=== PATIENT | female | born 1975 | race Caucasian/White ===

== ENCOUNTER → 2016-06-14 | Outpatient (CLI) | payer OTHER ==
[~2016-06-14] MED LIST: HYDRALAZINE HCL50 MG PO; HYDROCHLOROTHIA50 MG PO; IBUPROFEN600 MG PO; METFORMIN HCL1000 MG PO; NORCO 10-325 T1 EACH PO; POTASSIUM CHLO20 ME1 PO; PRILOSEC OTC20 MG PO
== END ==
LOC: CT 08:24
DX: R10.11 Right upper quadrant pain (principal); K76.0 Fatty (change of) liver, not elsewhere classified; N85.2 Hypertrophy of uterus
CPT/HCPCS: J7050; Q9962

== ENCOUNTER → 2016-08-09 | Outpatient (CLI) | payer OTHER ==
[2016-08-09 10:55] LABS: HEMOGLOBIN 15.6 gm/dl (12.3-15.3); RED BLOOD COUNT 5.18 M/UL (4.00-5.10); WHITE BLOOD COUNT 12.2 K/UL (4.5-11.0)
[2016-08-09 11:12] LABS: BUN/CREATININE RATIO 16 (0-10)
== END ==
LOC: OPSV2 10:00
PROVIDERS: Anesthesiology; Obstetrics & Gynecology
DX: Z01.812 Encounter for preprocedural laboratory examination (principal); N94.6 Dysmenorrhea, unspecified
CPT/HCPCS: 36415; 80048; 81001; 85025

== ENCOUNTER → 2016-08-20 | Outpatient (CLI) | payer OTHER | LOC: KOH-I 16:49 | DX: R05 Cough (principal) | CPT/HCPCS: 71020 ==

== ENCOUNTER 2016-08-22 08:50 | Day surgery (SDC) | payer OTHER ==
[~2016-08-22] VITALS: Ht 160 cm; Wt 87.5 kg
[2016-08-22] MEDS ORDERED: HYDRALAZINE HCL50 MG PO (09:19)
[2016-08-22] MEDS ORDERED: HYDROCHLOROTHIA50 MG PO (09:20)
[2016-08-22] MEDS ORDERED: METFORMIN HCL1000 MG PO (09:20)
[2016-08-22] MEDS ORDERED: POTASSIUM CHLO20 ME1 PO (09:21)
[2016-08-22] MEDS ORDERED: PRILOSEC OTC20 MG PO (09:22)
[2016-08-23] MEDS ORDERED: IBUPROFEN600 MG PO (10:29)
[2016-08-23] MEDS ORDERED: NORCO 10-325 T1 EACH PO (10:32)
== END 2016-08-23 06:00 | disposition home or self-care (01) ==
LOC: OR 08:50 → M/S 16:04 → OR 08-23 06:00
PROVIDERS: Obstetrics & Gynecology
PROC: 0UTC4ZZ Resection of Cervix, Percutaneous Endoscopic Approach (ICD-10-PCS; 2016-08-22)
PROC: 0UT04ZZ Resection of Right Ovary, Percutaneous Endoscopic Approach (ICD-10-PCS; 2016-08-22)
PROC: 0UT54ZZ Resection of Right Fallopian Tube, Percutaneous Endoscopic Approach (ICD-10-PCS; 2016-08-22)
PROC: 0UT94ZZ Resection of Uterus, Percutaneous Endoscopic Approach (ICD-10-PCS; principal; 2016-08-22 11:45)
DX: D25.9 Leiomyoma of uterus, unspecified (principal); N94.6 Dysmenorrhea, unspecified; N73.6 Female pelvic peritoneal adhesions (postinfective); I10 Essential (primary) hypertension; E11.9 Type 2 diabetes mellitus without complications; K21.9 Gastro-esophageal reflux disease without esophagitis; Z87.01 Personal history of pneumonia (recurrent); Z87.891 Personal history of nicotine dependence; Z88.2 Allergy status to sulfonamides; Z88.8 Allergy status to other drugs, medicaments and biological substances; Z79.84 Long term (current) use of oral hypoglycemic drugs; Z79.899 Other long term (current) drug therapy
CPT/HCPCS: 82962; 84703; J0690; J1200; J1885; J2250; J2270; J2405; J2710; J2765; J2795; J3010; J7120

== ENCOUNTER → 2020-03-08 | Outpatient (CLI) | payer OTHER ==
[~2020-03-08] MED LIST changes: +ACIDOPHILUS1 EAC2 PO; +ALDACTONE25 MG PO; +ALPRAZOLAM0.5 MG PO; +ATIVAN0.5 MG PO; +ATIVAN1 MG PO; +AUGMENTIN 875-1 EACH PO; +BENTYL 20MG TAB20 MG PO; +CARDIZEM CD300 MG PO; +CATAPRES 0.1MG0.1 MG PO; +CIPRO500 MG PO; +COREG 12.5MG12.5 MG PO; +FLAGYL500 MG PO; +FLORASTOR250 MG PO; +GLUCOPHAGE1000 MG PO; +GLUCOTROL 10 MG10 MG PO; +K-DUR TAB 10 M10 MEQ PO; +K-DUR TAB 20 M20 MEQ PO; +LAMICTAL25 MG PO; +LOPRESSOR50 MG PO; +NEURONTIN300 MG PO; +OMEPRAZOLE20 M2 PO; +OMNICEF 300 MG300 MG PO; +PAROXETINE HCL40 MG PO; +PEPCID20 MG PO; +PERCOCET 5-3251 EACH PO; +PHENERGAN 25 MG25 M1 PO; +PRAVASTATIN SOD40 MG PO; +PROZAC20 MG PO; +QUESTRAN LIGHT 44 GM PO; +REMERON15 MG PO; +TRANDATE 100 M100 MG PO; +VANCOCIN HCL125 MG PO; +VANCOMYCIN HCL125 MG PO; +VERAPAMIL ER240 MG PO; +VISTARIL25 MG PO; +ZOFRAN ODT 4 MG4 MG PO; +ZOFRAN ODT 4 MG4 MG SL; +ZYPREXA10 MG PO
== END ==
LOC: KOH-I 10:00
DX: N20.0 Calculus of kidney (principal); K63.89 Other specified diseases of intestine
CPT/HCPCS: 74176

== ENCOUNTER 2020-07-10 19:26 | Inpatient (IN) | payer OTHER ==
[~2020-07-10] VITALS: Ht 157.5 cm; Wt 74.8 kg
[~2020-07-10 19:26] MED LIST changes: -ATIVAN0.5 MG PO; -FLORASTOR250 MG PO; -GLUCOPHAGE1000 MG PO; -NEURONTIN300 MG PO; -OMEPRAZOLE20 M2 PO; -PRAVASTATIN SOD40 MG PO; -TRANDATE 100 M100 MG PO; -VANCOMYCIN HCL125 MG PO; -VERAPAMIL ER240 MG PO
[2020-07-10 21:21] LABS: HEMOGLOBIN 16.5 gm/dl (12.3-15.3); RED BLOOD COUNT 5.3 M/UL (4.00-5.10); WHITE BLOOD COUNT 13.2 K/UL (4.5-11.0)
[2020-07-10 21:36] LABS: BUN/CREATININE RATIO 13 (0-10)
[2020-07-10 22:37] LABS: ADENOVIRUS F 40/41 Not Detected (Negative); ASTROVIRUS Not Detected (Negative); CAMPYLOBACTER Not Detected (Negative); CRYPTOSPORIDIUM Not Detected (Negative); E.COLI 0157 Not Detected (Negative); ENTAMOEBA HISTOLYTICA Not Detected (Negative); ENTEROAGGREGATIVE E.COLI (EAEC Not Detected (Negative); ENTEROPATHOGENIC E.COLI (EPEC) Not Detected (Negative); ENTEROTOXIGENIC E.COLI (ETEC) Not Detected (Negative); GIARDIA LAMBLIA Not Detected (Negative); NOROVIRUS GI/GII Not Detected (Negative); PLESIOMONAS SHIGELLOIDES Not Detected (Negative); ROTOVIRUS A Not Detected (Negative); SALMONELLA Not Detected (Negative); SAPOVIRUS Not Detected (Negative); SHIG/ENTEROINVAS.ECOLI (EIEC) Not Detected (Negative); SHIGA-LIK TOX.PRO.E.COLI (STEC Not Detected (Negative); VIBRIO Not Detected (Negative); VIBRIO CHOLERAE Not Detected (Negative); YERSINIA ENTEROCOLITICA Not Detected (Negative)
[2020-07-11 03:39] LABS: HEMOGLOBIN 13.1 gm/dl (12.3-15.3); RED BLOOD COUNT 4.39 M/UL (4.00-5.10); WHITE BLOOD COUNT 11.3 K/UL (4.5-11.0)
[2020-07-11 04:00] LABS: BUN/CREATININE RATIO 9 (0-10)
[2020-07-11 08:35] LABS: CLOSTRIDIUM DIFFICILE TOX A/B DETECTED (Negative)
[2020-07-11] MEDS ORDERED: GLUCOPHAGE1000 MG PO (09:26)
[2020-07-11] MEDS ORDERED: GLUCOTROL 10 MG10 MG PO (09:28)
[2020-07-11] MEDS ORDERED: TRANDATE 100 M100 MG PO (09:28)
[2020-07-11] MEDS ORDERED: VERAPAMIL ER240 MG PO (09:29)
[2020-07-11] MEDS ORDERED: NEURONTIN300 MG PO (09:30)
[2020-07-11] MEDS ORDERED: ATIVAN0.5 MG PO (09:30)
[2020-07-11] MEDS ORDERED: PRAVASTATIN SOD40 MG PO (09:31)
[2020-07-11] MEDS ORDERED: OMEPRAZOLE20 M2 PO (09:31)
[2020-07-11 13:19] LABS: BUN/CREATININE RATIO 9 (0-10)
--- NOTE | 2020-07-11 13:26 | NUR ---
LAB CALLED WITH A CRITICAL POTASSIUM VALUE OF 2.8. PROVIDER WAS CALLED AND ORDERED 40MEQ PO NOW AND 3 10MEQ IV BAGS TO FOLLOW. WILL CONTINUE TO MONITOR.
[2020-07-11] MEDS ORDERED: HYDROCHLOROTHIA50 MG PO (13:59)
[2020-07-12 04:20] LABS: HEMOGLOBIN 12.8 gm/dl (12.3-15.3); RED BLOOD COUNT 4.18 M/UL (4.00-5.10)
[2020-07-12 04:24] LABS: WHITE BLOOD COUNT 7.6 K/UL (4.5-11.0)
[2020-07-12 04:57] LABS: BUN/CREATININE RATIO 8 (0-10)
[2020-07-13 06:28] LABS: HEMOGLOBIN 12.7 gm/dl (12.3-15.3); RED BLOOD COUNT 4.2 M/UL (4.00-5.10); WHITE BLOOD COUNT 7.4 K/UL (4.5-11.0)
[2020-07-13 06:57] LABS: BUN/CREATININE RATIO 13 (0-10)
[2020-07-14] MEDS ORDERED: VANCOMYCIN HCL125 MG PO (10:58)
== END 2020-07-14 12:01 | disposition home or self-care (01) | DRG 373 ==
LOC: ER1 19:26 → CDU 21:30 → M/S 21:30 → CDU 21:30 → M/S 07-11 07:22
PROVIDERS: Family Medicine; Internal Medicine; ADMIT Internal Medicine
DX: A04.72 Enterocolitis due to Clostridium difficile, not specified as recurrent (principal); E87.6 Hypokalemia; F41.1 Generalized anxiety disorder; E11.9 Type 2 diabetes mellitus without complications; I10 Essential (primary) hypertension; Z20.822 Contact with and (suspected) exposure to COVID-19; Z90.710 Acquired absence of both cervix and uterus; Z90.49 Acquired absence of other specified parts of digestive tract; Z87.891 Personal history of nicotine dependence; Z88.6 Allergy status to analgesic agent; Z88.2 Allergy status to sulfonamides; Z88.8 Allergy status to other drugs, medicaments and biological substances; Z79.4 Long term (current) use of insulin
CPT/HCPCS: 36415; 80048; 80053; 81001; 82962; 83690; 83735; 84703; 85025; 87324; 87449; 87507; 93005; 96374; 99285; G0378; J0696; J2550; J3480; Q9967; U0002

== ENCOUNTER → 2020-08-05 | Outpatient (CLI) | payer OTHER ==
[~2020-08-05] MED LIST changes: +ATIVAN0.5 MG PO; +FLORASTOR250 MG PO; +GLUCOPHAGE1000 MG PO; +NEURONTIN300 MG PO; +OMEPRAZOLE20 M2 PO; +PRAVASTATIN SOD40 MG PO; +TRANDATE 100 M100 MG PO; +VANCOMYCIN HCL125 MG PO; +VERAPAMIL ER240 MG PO
[2020-08-05 11:13] LABS: HEMOGLOBIN 16.2 gm/dl (12.3-15.3); RED BLOOD COUNT 5.2 M/UL (4.00-5.10); WHITE BLOOD COUNT 11.1 K/UL (4.5-11.0)
[2020-08-05 11:39] LABS: BUN/CREATININE RATIO 15 (0-10)
== END ==
LOC: LAB 10:57
PROVIDERS: Family Medicine
DX: R19.7 Diarrhea, unspecified (principal)
CPT/HCPCS: 36415; 80053; 85025; 87045; 87046; 87449

== ENCOUNTER → 2020-08-09 | Outpatient (CLI) | payer OTHER ==
[2020-08-09 11:07] LABS: BUN/CREATININE RATIO 12 (0-10)
== END ==
LOC: LAB 09:15
PROVIDERS: Family Medicine
DX: E87.6 Hypokalemia (principal)
CPT/HCPCS: 36415; 80048

== ENCOUNTER 2020-08-10 14:41 | Observation (INO) | payer OTHER ==
[~2020-08-10] VITALS: Ht 157.5 cm; Wt 74.8 kg
[~2020-08-10 14:41] MED LIST changes: -FLORASTOR250 MG PO
[2020-08-10 16:19] LABS: RED BLOOD COUNT 5.18 M/UL (4.00-5.10); WHITE BLOOD COUNT 14.6 K/UL (4.5-11.0)
[2020-08-10 16:47] LABS: BUN/CREATININE RATIO 15 (0-10)
[2020-08-11 03:33] LABS: RED BLOOD COUNT 4.23 M/UL (4.00-5.10)
[2020-08-11 04:21] LABS: BUN/CREATININE RATIO 10 (0-10)
[2020-08-11 09:31] LABS: ADENOVIRUS F 40/41 Not Detected (Negative); ASTROVIRUS Not Detected (Negative); CAMPYLOBACTER Not Detected (Negative); CLOSTRIDIUM DIFFICILE TOX A/B Not Detected (Negative); CRYPTOSPORIDIUM Not Detected (Negative); E.COLI 0157 Not Detected (Negative); ENTAMOEBA HISTOLYTICA Not Detected (Negative); ENTEROAGGREGATIVE E.COLI (EAEC Not Detected (Negative); ENTEROPATHOGENIC E.COLI (EPEC) Not Detected (Negative); ENTEROTOXIGENIC E.COLI (ETEC) Not Detected (Negative); GIARDIA LAMBLIA Not Detected (Negative); NOROVIRUS GI/GII Not Detected (Negative); PLESIOMONAS SHIGELLOIDES Not Detected (Negative); ROTOVIRUS A Not Detected (Negative); SALMONELLA Not Detected (Negative); SAPOVIRUS Not Detected (Negative); SHIG/ENTEROINVAS.ECOLI (EIEC) Not Detected (Negative); SHIGA-LIK TOX.PRO.E.COLI (STEC Not Detected (Negative); VIBRIO Not Detected (Negative); VIBRIO CHOLERAE Not Detected (Negative); YERSINIA ENTEROCOLITICA Not Detected (Negative)
--- NOTE | 2020-08-11 12:16 | NUR ---
MD AWARE OF 2 SECOND PAUSE WITH TELEMETRY, INSTRUCTED TO MONITOR FOR NOW.
[2020-08-12 05:59] LABS: HEMOGLOBIN 12.7 gm/dl (12.3-15.3); RED BLOOD COUNT 4.15 M/UL (4.00-5.10)
[2020-08-12 06:00] LABS: WHITE BLOOD COUNT 6.7 K/UL (4.5-11.0)
[2020-08-12 06:33] LABS: BUN/CREATININE RATIO 7 (0-10)
[2020-08-12] MEDS ORDERED: FLORASTOR250 MG PO (12:02)
[2020-08-12] MEDS ORDERED: K-DUR TAB 20 M20 MEQ PO (12:06)
--- NOTE | 2020-08-12 12:15 | NUR ---
DR. DAMON AWARE OF CARDIAC PAUSE AND BRADYCARDIA. NEW ORDERS NOTED.
[2020-08-12] MEDS ORDERED: TRANDATE 100 M100 MG PO (12:45)
== END 2020-08-12 13:28 | disposition home or self-care (01) ==
LOC: ER1 14:41 → M/S 20:33 → CDU 20:33 → M/S 20:33
PROVIDERS: Internal Medicine; Physician Assistant; ADMIT Internal Medicine
DX: R19.7 Diarrhea, unspecified (principal); E87.6 Hypokalemia; R00.1 Bradycardia, unspecified; D72.829 Elevated white blood cell count, unspecified; I10 Essential (primary) hypertension; E11.9 Type 2 diabetes mellitus without complications; Z20.822 Contact with and (suspected) exposure to COVID-19; Z88.2 Allergy status to sulfonamides; Z88.8 Allergy status to other drugs, medicaments and biological substances; Z87.891 Personal history of nicotine dependence; Z79.2 Long term (current) use of antibiotics; Z79.899 Other long term (current) drug therapy
CPT/HCPCS: 36415; 80048; 80053; 81001; 82962; 83605; 83690; 83735; 84132; 85025; 87507; 93005; 96374; 96375; 99285; G0378; J1650; J2270; J2405; J3480; Q9967; U0002

== ENCOUNTER → 2020-11-16 | Outpatient (CLI) | payer OTHER ==
[~2020-11-16] MED LIST changes: +FLORASTOR250 MG PO
== END ==
LOC: KOH-I 12:42
DX: M51.16 Intervertebral disc disorders with radiculopathy, lumbar region (principal); M48.061 Spinal stenosis, lumbar region without neurogenic claudication
CPT/HCPCS: 72148

== ENCOUNTER → 2020-11-29 | Outpatient (CLI) | payer OTHER | LOC: LAB 12:00 | DX: E04.2 Nontoxic multinodular goiter (principal) | CPT/HCPCS: 36415; 84443 ==

== ENCOUNTER → 2021-03-29 | Outpatient (CLI) | payer OTHER ==
[~2021-03-29] MED LIST changes: +DOCUSATE SODIU100 MG PO; +FLAGYL 250 MG250 MG PO; +HYDROCODON-ACE1 EAC4 PO; +IBUPROFEN800 MG PO; +KLONOPIN0.5 MG PO; +PREMARIN VAG CR30 GM EXT; +PYRIDIUM200 MG PO; +VISTARIL50 MG PO
== END ==
LOC: LAB 10:00
DX: E89.0 Postprocedural hypothyroidism (principal)
CPT/HCPCS: 36415; 84443

== ENCOUNTER → 2021-09-06 | Outpatient (CLI) | payer OTHER | LOC: HEART 5 09:23 | DX: R07.9 Chest pain, unspecified (principal); R06.02 Shortness of breath; R00.0 Tachycardia, unspecified ==

== ENCOUNTER 2021-11-04 17:03 | Emergency (ER) | payer OTHER ==
[2021-11-04 17:30] LABS: HEMOGLOBIN 15.7 gm/dl (12.3-15.3); RED BLOOD COUNT 5.14 M/UL (4.00-5.10); WHITE BLOOD COUNT 11.4 K/UL (4.5-11.0)
[2021-11-04 18:00] LABS: BUN/CREATININE RATIO 15 (0-10)
[2021-11-05] MEDS ORDERED: K-TAB ER10 MEQ PO (00:53)
== END 2021-11-05 01:02 | disposition home or self-care (01) ==
LOC: ER1 17:03
PROVIDERS: Physician Assistant
DX: F41.1 Generalized anxiety disorder (principal); E11.65 Type 2 diabetes mellitus with hyperglycemia; E11.40 Type 2 diabetes mellitus with diabetic neuropathy, unspecified; I11.9 Hypertensive heart disease without heart failure; E78.5 Hyperlipidemia, unspecified; Z88.2 Allergy status to sulfonamides; Z88.5 Allergy status to narcotic agent; Z88.8 Allergy status to other drugs, medicaments and biological substances
CPT/HCPCS: 70450; 71045; 80053; 80307; 81001; 82550; 82553; 83735; 84484; 85025; 87086; 93005; 99284

== ENCOUNTER → 2021-11-27 | Outpatient (CLI) | payer OTHER ==
[~2021-11-27] MED LIST changes: +ACTOS30 MG PO; +CLEOCIN HCL300 MG PO; +K-TAB ER10 MEQ PO; +K-TAB ER20 MEQ PO; +LEVOFLOXACIN500 MG PO; +LEVOTHYROXINE175 MC1 PO; +METHOCARBAMOL500 MG PO
[2021-11-27 14:09] LABS: HEMOGLOBIN 14.8 gm/dl (12.3-15.3); RED BLOOD COUNT 4.94 M/UL (4.00-5.10); WHITE BLOOD COUNT 10.7 K/UL (4.5-11.0)
[2021-11-27 14:44] LABS: BUN/CREATININE RATIO 17 (0-10)
== END ==
LOC: ECHO 13:08
PROVIDERS: Internal Medicine Cardiovascular Disease
DX: I49.5 Sick sinus syndrome (principal); R55 Syncope and collapse
CPT/HCPCS: ECHO; 36415; 71046; 80048; 85025; 93306

== ENCOUNTER 2021-11-28 06:27 | Outpatient (CLI) | payer OTHER ==
[~2021-11-28] VITALS: Ht 157.5 cm; Wt 77.6 kg
[~2021-11-28 06:27] MED LIST changes: -ACTOS30 MG PO; -CLEOCIN HCL300 MG PO; -K-TAB ER20 MEQ PO; -LEVOFLOXACIN500 MG PO; -LEVOTHYROXINE175 MC1 PO; -METHOCARBAMOL500 MG PO
[2021-11-28] MEDS ORDERED: ACTOS30 MG PO (07:52)
[2021-11-28] MEDS ORDERED: HYDROCHLOROTHIA50 MG PO (07:53)
[2021-11-28] MEDS ORDERED: K-TAB ER20 MEQ PO (07:53)
[2021-11-28] MEDS ORDERED: METHOCARBAMOL500 MG PO (07:53)
[2021-11-28] MEDS ORDERED: LEVOTHYROXINE175 MC1 PO (07:54)
[2021-11-28] MEDS ORDERED: LEVOFLOXACIN500 MG PO (10:38)
[2021-11-28] MEDS ORDERED: HYDROCODON-ACE1 EAC4 PO (10:38)
[2021-11-28] MEDS ORDERED: CLEOCIN HCL300 MG PO (10:38)
== END 2021-11-29 10:00 | disposition home or self-care (01) ==
LOC: CATH 06:27 → MED SURG 4 14:28 → CATH 11-29 10:00
DX: I49.5 Sick sinus syndrome (principal); I10 Essential (primary) hypertension; E78.5 Hyperlipidemia, unspecified; Z87.891 Personal history of nicotine dependence; E78.00 Pure hypercholesterolemia, unspecified; Z88.8 Allergy status to other drugs, medicaments and biological substances; Z88.2 Allergy status to sulfonamides; Z79.899 Other long term (current) drug therapy
CPT/HCPCS: 33208; 71045; 82962; 93005; 99152; 99153; C1898; C2621; J1644; J2250; J2270; J3010; J3370; J7040; J7050; J7070